=== PATIENT | male | born 1940 | race Caucasian/White ===

== ENCOUNTER 2019-05-02 13:51 | Observation (INO) ==
[2019-05-02] MEDS ORDERED: Aspirin 81 MG TAB.CHEW PO ONE (14:00)
[2019-05-02] MEDS ORDERED: Isovue-370 500 ML BOTTLE IVP ONE ×2 (14:01→14:31)
[2019-05-02 14:14] LABS: Hematocrit 49.5 % (37.5-50.1); Hemoglobin 15.2 g/dL (12.9-16.9); Mean Corpuscular HGB Conc 30.7 g/dL (31.6-35.5); Mean Corpuscular Hemoglobin 27.7 pg (28.0-33.3); Mean Corpuscular Volume 90.3 fL (83.0-100.0); Mean Platelet Volume 10.4 fL (9.4-12.4); Platelet Count 228 K/mcL (140-400); Red Blood Count 5.48 M/mcL (4.19-5.50); White Blood Count 8.2 K/mcL (4.3-11.1)
[2019-05-02 14:26] LABS: INR 1.9; Prothrombin Time 21.2 Seconds (9.4-12.1)
[2019-05-02 14:29] LABS: Activated Partial Thrombo Time 43.2 Seconds (26.0-36.0)
[2019-05-02 14:33] LABS: BUN/Creatinine Ratio 13 (6-26); Blood Urea Nitrogen 17 mg/dL (8-23); Calcium 9.8 mg/dL (8.6-10.3); Carbon Dioxide 31 mEq/L (23-29); Chloride 103 mEq/L (98-107); Glucose 195 mg/dL (70-105); Osmolality,Calculated 297 (280-300); Potassium 3.9 mEq/L (3.5-5.1); Sodium 140 mEq/L (136-145); Troponin I < 0.03 ng/mL (< 0.04); eGFR For African Americans > 60 (> 60); eGFR For Non-African Americans 54 (> 60)
[2019-05-02] MEDS ORDERED: Naloxone 0.4 MG/ML INJ IVP PRN (16:39)
[2019-05-02] MEDS ORDERED: Acetaminophen 325 MG TABLET PO PRN (16:39)
[2019-05-02] MEDS ORDERED: *HR* Dextrose 50 % in Water (Syg) 50 ML SYRINGE IVP PRN (16:42)
[2019-05-02] MEDS ORDERED: Dextrose Gel 15 GM/37.5 ML TUBE PO PRN ×2 (16:42)
[2019-05-02] MEDS ORDERED: D5% in Water 1,000 ML IVC PRN (16:42)
[2019-05-02] MEDS ORDERED: *HR* Labetalol 20 MG/4 ML SYRINGE IVP PRN (17:31)
[2019-05-02] MEDS ORDERED: *HR* Rivaroxaban 10 MG TABLET PO SCH (18:00)
[2019-05-02] MEDS ORDERED: Insulin DETEMIR 100 UNIT/ML X5UNITS SQ SCH (21:00)
[2019-05-02] MEDS: Lidocaine 4% CREAM (LMX) 5 GM TP SCH (22:09)
[2019-05-02] MEDS: carvediloL 25 MG TABLET PO SCH (22:09)
[2019-05-02] MEDS: Lidocaine TOPICAL Soln 50 ML BOTTLE TP SCH (22:41)
[2019-05-03 05:18] LABS: Basophils # 0.1 K/mcL (0.0-0.2); Basophils % 0.8 %; Eosinophils # 0.6 K/mcL (0.0-0.6); Hematocrit 46.1 % (37.5-50.1); Hemoglobin 14.5 g/dL (12.9-16.9); Immature Granulocytes % 0.5 % (0-4); Lymphocytes # 0.9 K/mcL (0.6-4.6); Lymphocytes % 11.2 %; Mean Corpuscular HGB Conc 31.5 g/dL (31.6-35.5); Mean Corpuscular Hemoglobin 28.4 pg (28.0-33.3); Mean Corpuscular Volume 90.2 fL (83.0-100.0); Mean Platelet Volume 10.9 fL (9.4-12.4); Monocytes % 12.3 %; Neutrophils # 5.2 K/mcL (1.6-8.9); Platelet Count 183 K/mcL (140-400); Red Blood Count 5.11 M/mcL (4.19-5.50); Segmented Neutrophils % 67.2 %; White Blood Count 7.7 K/mcL (4.3-11.1)
[2019-05-03 05:35] LABS: Alanine Aminotransferase 19 Units/L (7-52); Albumin 3.7 g/dL (3.5-5.7); Albumin/Globulin Ratio 1.3 (1.1-2.2); Alkaline Phosphatase 50 Units/L (34-104); Aspartate Amino Transferase 25 Units/L (13-39); BUN/Creatinine Ratio 14 (6-26); Bilirubin,Total 0.9 mg/dL (0.3-1.0); Blood Urea Nitrogen 16 mg/dL (8-23); Calcium 9.4 mg/dL (8.6-10.3); Carbon Dioxide 29 mEq/L (23-29); Chloride 104 mEq/L (98-107); Chol/HDL Ratio 3.8 (0-4.9); Cholesterol 142 mg/dL (< 200); Globulin 2.8 g/dL (2.4-3.5); Glucose 123 mg/dL (70-105); HDL Cholesterol 37 mg/dL (40-59); LDL Cholesterol,Calculated 79 mg/dL (0-99); Magnesium 1.9 mg/dL (1.6-2.6); Osmolality,Calculated 295 (280-300); Potassium 3.7 mEq/L (3.5-5.1); Sodium 141 mEq/L (136-145); Total Protein 6.5 g/dL (6.4-8.9); Triglycerides 131 mg/dL (< 150); eGFR For African Americans > 60 (> 60); eGFR For Non-African Americans > 60 (> 60)
[2019-05-03] MEDS: Insulin LISPRO 300 UNITS/3 ML VIAL SQ SCH ×2 (08:05→12:23)
[2019-05-03] MEDS: carvediloL 25 MG TABLET PO SCH (08:21)
[2019-05-03] MEDS ORDERED: Lisinopril-HCTZ 20-12.5mg TABLET PO SCH (09:00)
[2019-05-03] MEDS ORDERED: Aspirin Enteric Coated 81 MG Tablet PO SCH (09:00)
[2019-05-03] MEDS: Lidocaine 4% CREAM (LMX) 5 GM TP SCH (10:17)
[2019-05-03] MEDS: Lidocaine TOPICAL Soln 50 ML BOTTLE TP SCH (10:18)
[2019-05-03 10:29] LABS: Estimated Average Glucose 148 mg/dl
[2019-05-03 11:21] VITALS: BP 116/55
== END 2019-05-03 14:50 | disposition home or self-care (01) | DRG 68 ==
LOC: 3BNU 13:51 → EMEROOARM 13:51 → SUATTDRO 16:12 → 3BNU 16:53
PROVIDERS: ADMIT Internal Medicine; ATTEND Internal Medicine